=== PATIENT | female | born 1960 | race Caucasian/White ===

== ENCOUNTER 2018-05-17 04:50 | Inpatient (IN) | payer OTHER ==
[2018-05-17] MEDS ORDERED: TRANEXAMIC ACID 1,000 MG in NS 100 ML IV ONE (06:00)
[2018-05-17] MEDS ORDERED: LIDOCAINE 1% 2 ML INJ ONE (06:05)
[2018-05-17] MEDS ORDERED: ACETAMINOPHEN 500 MG TAB PO ONE (06:06)
[2018-05-17] MEDS ORDERED: morphINE PF 0.2 MG in SYRINGE INTRATHECAL 1 SYR IT ONE (06:06)
[2018-05-17] MEDS ORDERED: LR 1,000 ML IV ONE (06:06)
[2018-05-17] MEDS ORDERED: fentaNYL 50 MCG in SYRINGE INTRATHECAL 1 SYR IT ONE (06:06)
[2018-05-17] MEDS ORDERED: GABAPENTIN 300 MG CAP PO ONE (06:06)
[2018-05-17] MEDS ORDERED: LIDOCAINE 1% 2 ML INJ ID PRN (06:06)
[2018-05-17] MEDS ORDERED: ceFAZolin 2 GM/DEXTROSE 100 ML IV ONE (06:06)
[2018-05-17] MEDS ORDERED: BUPIVACAINE 0.25% 10 ML SDV ONE (06:33)
[2018-05-17] MEDS ORDERED: BUPIVACAINE/EPI 0.25% 30 ML SDV ONE (06:33)
[2018-05-17] MEDS ORDERED: CHLORHEXIDINE GLUC HIBICLENS 118 ML BTL TP ONE (06:34)
[2018-05-17] MEDS ORDERED: BACITRACIN 50,000 UNITS/10 ML SYR IRR ONE (06:34)
[2018-05-17] MEDS ORDERED: THROMBIN (BOVINE) 20,000 UNIT VIAL TP ONE (06:34)
[2018-05-17] MEDS ORDERED: CITRATE DEXTROSE SOLN 500 ML BAG ONE (06:34)
[2018-05-17] MEDS ORDERED: MIDAZOLAM 2 MG/2 ML VIAL IVP ONE (06:50)
--- NOTE | 2018-05-17 06:52 | PDANEPAE ---
ANE History of Present Illness TLIF ANE Past Medical History - Cardiovascular History Hx Hypertension: No Hx Arrhythmias: No Hx Chest Pain: No Hx Coronary Artery / Peripheral Vascular Disease: No Hx CHF / Valvular Disease: No Hx Palpitations: Yes Cardiovascular History Comment: RELATED TO ANXIETY - Pulmonary History Hx COPD: No Hx Asthma/Reactive Airway Disease: No Hx Recent Upper Respiratory Infection: No Hx Oxygen in Use at Home: No Hx Sleep Apnea: No Sleep Apnea Screening Result - Last Documented: Negative - Neurologic History Hx Cerebrovascular Accident: No Hx Seizures: No Hx Dementia: No - Endocrine History Hx Diabetes: No Hypothyroid: No Hyperthyroid: No Obesity: no Endocrine History Comment: HYPOTHYROID - Renal History Hx Renal Disorders: No Renal History Comment: REMOTE UTI - Liver History Hx Hepatic Disorders: No - Neurological & Psychiatric Hx Hx Neurological and Psychiatric Disorders: Yes Neurological / Psychiatric History Comment: DEPRESSION/ANXIETY - Cancer History Hx Cancer: No - Congenital Disorder History Hx Congenital Disorders: No - GI History GERD: no Hx Gastrointestinal Disorders: No - Other Health History Other Health History: LT LEG/FOOT NT. SCOLIOSIS. DDD - Chronic Pain History Chronic Pain: Yes (DOWN LT LEG AND LOWER BACK) - Surgical History Prior Surgeries: LAMINECTOMIES X 2 LAST 2014. DIONICIO BUNIONECTOMY. HYSTERECTOMY. RT CALF MUSCLE FOR FLEXIBILITY. RT 2ND TOE SHORTENED. REMVL NIELSON NEUROMA RT FOOT ANE Review of Systems Review of systems is: negative Review of Systems: - Exercise capacity METS (RN): 4 METS ANE Patient History - Allergies Allergies/Adverse Reactions: Sulfa (Sulfonamide Antibiotics) Allergy (Verified 05/14/18 14:49) Hives - Home Medications Home medications: home medication list seen and reviewed Home Medications: Cholecalciferol Vit D3 [Vitamin D3 (*)] 1,000 units PO DAILY 05/11/18 [Last Taken 05/10/18] Cyanocobalamin [Vitamin B12 (*)] 1,000 mcg PO DAILY 05/11/18 [Last Taken ] Escitalopram Oxalate [Lexapro] 30 mg PO DAILY 05/11/18 [Last Taken 05/17/18] Herbals/Supplements -Info Only 1 ea PO DAILY 05/11/18 [Last Taken Unknown] Hydrocodone/APAP 5/325 [[employer] 5/325 (*)] 1 tab PO DAILY 05/11/18 [Last Taken 02/23] Ibuprofen [Motrin (*)] 400 - 800 mg PO DAILY PRN 05/11/18 [Last Taken 05/07/18] Levothyroxine [Synthroid 50 mcg (*)] 50 mcg PO DAILY06 05/11/18 [Last Taken 03/25] Liothyronine Sodium [Cytomel 5 mcg (*)] 5 mcg PO DAILY 05/11/18 [Last Taken 03/25] Multivitamins [Multivitamin (*)] 1 each PO DAILY 05/11/18 [Last Taken 05/10/18] Propranolol HCl [Inderal 10mg (*)] 10 mg PO DAILY 05/11/18 [Last Taken 05/16/18] buPROPion XL [Wellbutrin Xl] 150 mg PO DAILY 05/11/18 [Last Taken 05/17/18] Estradiol ONCE 05/14/18 [Last Taken 05/16/18] - NPO status NPO Since - Liquids (Date): 05/16/18 NPO Since - Liquids (Time): 18:30 NPO Since - Solids (Date): 05/16/18 NPO Since - Solids (Time): 18:30 - Anes Hx Anes Hx: no prior problems - Smoking Hx Smoking Status: Former smoker ANE Labs/Vital Signs - Vital Signs Blood Pressure: 100/59 Heart Rate: 61 Respiratory Rate: 18 O2 Sat (%): 96 Height: 165.1 cm Weight: 68.039 kg ANE Physical Exam - Airway Neck exam: FROM Mallampati Score: Class 2 Mouth exam: normal dental/mouth exam - Pulmonary Pulmonary: no respiratory distress - Cardiovascular Cardiovascular: regular rate and rhythym - ASA Status ASA Status: II ANE Anesthesia Plan Anesthesia Plan: general endotracheal anesthesia
[2018-05-17 06:55] LABS: PLATELET COUNT 271 10^3/uL (150-400)
[2018-05-17] MEDS ORDERED: fentaNYL 100 MCG/2 ML INJ ONE ×2 (06:56→13:01)
[2018-05-17] MEDS ORDERED: REMIFENTANIL HCL 1 MG VIAL ONE ×2 (06:56→09:40)
--- NOTE | 2018-05-17 06:56 | PDHPUP ---
History & Physical Update H&P update statement: This history and physical update is based on an assessment of the patient which was completed after admission or registration (within 24 hours), but prior to the surgery/procedure. H&P update: H&P reviewed & patient examined, no change in patient's condition since H&P completed
[2018-05-17] MEDS ORDERED: PROPOFOL/EMULSION 500 MG/50 ML BOTTLE IV ONE ×2 (06:57→09:41)
[2018-05-17] MEDS ORDERED: DEXAMETHASONE 4 MG/ML VIAL ONE (07:10)
[2018-05-17] MEDS ORDERED: ONDANSETRON 4 MG/2 ML VIAL ONE (07:10)
[2018-05-17] MEDS ORDERED: ROCURONIUM 50 MG/5 ML VIAL ONE (07:10)
[2018-05-17] MEDS ORDERED: LIDOCAINE 2% 100 MG/5 ML SYR ONE (07:10)
[2018-05-17] MEDS ORDERED: ePHEDrine SULFATE 25 MG/5 ML SYR ONE ×2 (07:36→09:39)
[2018-05-17] MEDS ORDERED: HYDROmorphONE/DILAUDID 2 MG/ML INJ ONE ×2 (10:27→13:01)
[2018-05-17] MEDS ORDERED: ceFAZolin 1 GM VIAL ONE ×2 (10:55→10:56)
[2018-05-17] MEDS ORDERED: THROMBIN (BOVINE) 5,000 UNIT VIAL TP ONE (11:05)
[2018-05-17] MEDS ORDERED: ALBUTEROL 3 ML DEYVIAL IH PRN (11:15)
[2018-05-17] MEDS ORDERED: HYDROmorphONE/DILAUDID 2 MG/ML INJ IVP PRN (11:15)
[2018-05-17] MEDS ORDERED: oxyCODONE IR 5 MG TAB PO PRN (11:15)
[2018-05-17] MEDS ORDERED: NALOXONE HCL 0.4 MG/ML INJ IVP PRN ×2 (11:15→12:44)
[2018-05-17] MEDS ORDERED: DIAZEPAM 5 MG/ML 1 ML SYR IVP PRN (11:15)
[2018-05-17] MEDS ORDERED: METOCLOPRAMIDE 10 MG/2 ML VIAL IVP PRN (11:15)
[2018-05-17] MEDS ORDERED: LR 500 ML IV PRN (11:15)
[2018-05-17] MEDS ORDERED: ONDANSETRON 4 MG/2 ML VIAL IVP PRN (11:15)
[2018-05-17] MEDS ORDERED: ACETAMINOPHEN 500 MG TAB PO PRN (11:15)
[2018-05-17] MEDS ORDERED: fentaNYL 100 MCG/2 ML INJ IVP PRN (11:15)
[2018-05-17] MEDS ORDERED: HYDROCODONE/APAP 5/325 TAB PO PRN (11:15)
[2018-05-17] MEDS ORDERED: PROMETHAZINE HCL 25 MG/ML INJ IVP PRN (11:15)
[2018-05-17] MEDS ORDERED: PHENYLEPHRINE HCL 100 MCG/ML SYR IVP PRN (11:15)
--- NOTE | 2018-05-17 11:30 | POSTANESTH ---
Post Anesthetic Evaluation Cardiovascular Status: Normal, Stable Respiratory Status: Normal, Stable Level of Consciousness/Mental Status: Can Participate in Eval, Alert and Oriented Pain Control: Adequate, Prn Tx Ordered Nausea/Vomiting Control: Adequate, Prn Tx Ordered Complications Possibly Related to Anesthesia: None Noted
[2018-05-17] MEDS ORDERED: ONDANSETRON DISINTEGRATING 4 MG TAB PO PRN (12:44)
[2018-05-17] MEDS ORDERED: morphINE PCA 30 MG/30 ML PCA IV PRN (12:44)
[2018-05-17] MEDS ORDERED: MAGNESIUM HYDROXIDE 30 ML UDCUP PO PRN (12:44)
[2018-05-17] MEDS ORDERED: BISACODYL 10 MG SUPP PR PRN (12:44)
[2018-05-17] MEDS ORDERED: diphenhydrAMINE 25 MG CAP PO PRN (12:44)
[2018-05-17] MEDS ORDERED: LACTULOSE 20 GM/30 ML UDCUP PO PRN (12:44)
[2018-05-17] MEDS ORDERED: NS 1,000 ML IV SCH (12:45)
--- NOTE | 2018-05-17 12:50 | SOAPPROG ---
SOAP Progress Note Assessment/Plan: Assessment: 57 yo F sp L2-5 TLIF Plan: stable to 3N LSO brace when out of bed please call with neuro changes 05/17/18 12:49 Subjective: + back pain, no leg pain. Objective: Vital Signs Temp Pulse Resp BP Pulse Ox 36.6 C 61 18 100/59 L 96 05/17/18 07:07 05/17/18 07:07 05/17/18 07:07 05/17/18 07:07 05/17/18 07:07 Laboratory Results 05/17/18 06:40 somnolent PERRL, EOMI 5/5 + light touch ICD10 Worksheet Patient Problems: Problems Problem Status Onset Fusion of spine of lumbar region Acute - ICD10 Problem Qualifiers (1) Fusion of spine of lumbar region
[2018-05-17] MEDS: ceFAZolin 2 GM/DEXTROSE 100 ML IV SCH ×2 (16:38→23:58)
[2018-05-17] MEDS: POLYETHYLENE GLYCOL 3350 17 GM PKT PO SCH ×2 (16:39→21:57)
--- NOTE | 2018-05-17 17:28 | GOP ---
DATE OF OPERATION: 05/17/2018 SURGEON: Akil Lacey MD NEUROSURGEON: Akil Lacey MD SLOT FLOOR PERSON: AN Kunz ANESTHESIA: General endotracheal. PREOPERATIVE DIAGNOSIS: Severe multilevel lumbar degenerative joint disease and spinal stenosis with scoliosis. Severe lateral recess impingement on the left greater than right. Failed conservative care. Intractable low back pain and left lower extremity radiculopathy. Failed conservative care. POSTOPERATIVE DIAGNOSIS: Severe multilevel lumbar degenerative joint disease and spinal stenosis with scoliosis. Severe lateral recess impingement on the left greater than right. Failed conservative care. Intractable low back pain and left lower extremity radiculopathy. Failed conservative care. PROCEDURE PERFORMED: Left-sided L2-3 L3-4 L4-5 far lateral transpedicular decompression with L2 through 5 posterior segmental (pedicle screw and axle device) fixation and posterolateral fusion with local autograft, bone morphogenic protein, and morselized allograft. L2-3 L3-4, and L4-5 posterior/ transforaminal lumbar interbody fusion with 2 structural PEEK interbody spacers , local autograft, bone morphogenic protein, and morselized allograft at each level. Use of intraoperative microscopy fluoroscopy and computer volumetric stereotactic navigation with intraoperative neurophysiologic testing. Injection of injection of intrathecal narcotic analgesics in subcutaneous and intramuscular local anesthesia for postoperative pain control. FINDINGS: ESTIMATED BLOOD LOSS: 300 cc. INDICATIONS: The patient is a 57-year-old woman with intractable low back pain and left lower extremity radicular symptoms secondary to severe multilevel lumbar degenerative joint disease and severe spinal stenosis with lateral recess impingement. The patient has failed extensive conservative care and presents now for surgical decompression and stabilization. DESCRIPTION OF PROCEDURE: After informed consent was obtained, the patient was taken to the operating room and placed in the prone position on the Thomas table. The thoracolumbosacral areas were prepped and draped in a sterile fashion. After fluoroscopic localization of the correct level, the subcutaneous and intramuscular tissues were infiltrated with local anesthesia. A midline linear incision was then created from approximately L2 to L5. This was carried down to the fascial layer, which was then incised using monopolar electrocautery and carried in the subperiosteal plane along the spinous processes and lamina bilaterally. Intraoperative fluoroscopy was again utilized to verify the correct levels. Note that the exposure was very difficult due to the anatomy and increased blood loss which was more than normal. This led to the exposure taking twice as long as normal. Following this, the dissection was carried out over the facet joints. Left- sided far lateral transpedicular decompressions were then performed at the L2-3 , L3-4, and L4-5 levels with a redo posterior hemilaminectomy and decompression being performed at the L4-5 level where there was a prior hemilaminectomy defect and extensive scar tissue. This required meticulous dissection under high -power microscopy, and after thoroughly decompressing each level on the left, as well as right side by angling the microscope and instruments across the midline, the wound was copiously irrigated with antibiotic irrigation and meticulous hemostasis was achieved. Again, this part of the procedure was much more difficult and time-consuming than normal due to the scar tissue and distorted anatomy and took more than twice as long as normal. Following this, short rods were placed across the interspaces, which were placed under distraction, during which time complete diskectomies were performed at the L2-3, L3-4, and L4-5 levels for placement of 2 structural PEEK interbody spacers, local autograft, bone morphogenic protein, and morselized allograft for L2-3, L3-4, and L4-5 posterior/transforaminal lumbar interbody fusions. The shorter rods were then removed and longer maximally lordotically curved rods were then placed and secured from L2 to L5 under fluoroscopic image guidance. A slight amount of compression was created across each interspace in order to facilitate bony union and to minimize the potential for posterior graft migration. The remaining lamina and facet joints were then extensively decorticated and the residual local autograft, along with bone morphogenic protein and morselized allograft was placed out laterally for posterolateral fusion from L2-L5. 200 mcg of Duramorph along with 50 mcg of fentanyl were injected intrathecally. The subcutaneous and intramuscular tissues were re-infiltrated with local anesthesia, and after re-verification of good position of the screws, rods, and interbody spacers using biplanar fluoroscopy, a drain was placed and the wound was closed in a layered fashion using interrupted Vicryl sutures, followed by Steri-Strips on the skin. COMPLICATIONS: None. DISPOSITION: The patient was extubated and transferred to the recovery room in stable condition. /[id number]/MODL MTDD
[2018-05-17] MEDS: ONDANSETRON 4 MG/2 ML VIAL IVP PRN (17:32)
--- NOTE | 2018-05-17 19:20 | PDMN ---
Medical Necessity Medical necessity: [facility] [place] S820 lumbar fusion OP: L2-5 TLIF... AUTH# [id number] APPROVED FOR CPT 65452, 24601, 38199, 17889, 29212, 14950, 40496, 23222 DONE INPNT LOS 3 DAYS
[2018-05-17] MEDS: FAMOTIDINE 20 MG TAB PO SCH (21:57)
[2018-05-17] MEDS: SENNOSIDES/DOCUSATE SODIUM TAB PO SCH (21:57)
[2018-05-18] MEDS: HYDROCODONE/APAP 5/325 TAB PO PRN ×2 (01:08→13:05)
[2018-05-18 05:22] LABS: PLATELET COUNT 224 10^3/uL (150-400)
[2018-05-18] MEDS: oxyCODONE IR 5 MG TAB PO PRN ×2 (06:15→08:23)
[2018-05-18] MEDS: LEVOTHYROXINE 50 MCG TAB PO SCH (06:15)
[2018-05-18] MEDS: METHOCARBAMOL 750 MG TAB PO PRN ×2 (06:15→12:58)
--- NOTE | 2018-05-18 07:24 | SOAPPROG ---
SOAP Progress Note Assessment/Plan: Assessment: POD #1 sp L2-5 TLIF. Doing well, pain controlled no new issues Plan: Continue HUMBERTO drain OOB in LSO with PT/OT Lumbar Xrays today to evaluate hardware Lovenox starts today 05/18/18 07:22 05/18/18 07:24 Subjective: lying in bed, comfortable. Denies numbness tingling or weakness Objective: Vital Signs Temp Pulse Resp BP Pulse Ox 36.9 C 73 16 92/57 L 99 05/18/18 04:00 05/18/18 04:00 05/18/18 04:00 05/18/18 04:00 05/18/18 04:00 Laboratory Results 05/18/18 04:21 05/18/18 04:21 05/17/18 05/18/18 05/19/18 05:59 05:59 05:59 Intake Total 5400 Output Total 2780 Balance 2620 Neuro: VARGAS, sens +Lt Dressing: Dry HUMBERTO: 280 ml since surgery ICD10 Worksheet Patient Problems: Problems Problem Status Onset Fusion of spine of lumbar region Acute
[2018-05-18] MEDS: ESCITALOPRAM OXALATE 10 MG TAB PO SCH (08:24)
[2018-05-18] MEDS: ENOXAPARIN 40 MG/0.4 ML SYR SC SCH (08:25)
[2018-05-18] MEDS: POLYETHYLENE GLYCOL 3350 17 GM PKT PO SCH ×3 (08:25→22:41)
[2018-05-18] MEDS: SENNOSIDES/DOCUSATE SODIUM TAB PO SCH ×2 (08:25→20:00)
[2018-05-18] MEDS: buPROPion XL 150 MG TAB PO SCH (08:25)
[2018-05-18] MEDS: FAMOTIDINE 20 MG TAB PO SCH ×2 (08:25→20:00)
[2018-05-18] MEDS: ONDANSETRON 4 MG/2 ML VIAL IVP PRN ×2 (10:08→14:17)
[2018-05-18] MEDS: LIOTHYRONINE SODIUM 5 MCG TAB PO SCH (10:21)
[2018-05-18] MEDS: PROPRANOLOL HCL 20 MG TAB PO SCH (10:22)
[2018-05-18] MEDS ORDERED: PROMETHAZINE HCL 25 MG/ML INJ IVP PRN (14:34)
[2018-05-18] MEDS: HYDROCODONE/APAP 10/325 TAB PO PRN ×2 (19:56→22:41)
--- NOTE | 2018-05-18 21:36 | ASMTCMCOM ---
CM Note CM Note Notes: Pt had planned surgery, resides with spouse. OT rec home, PT eval pending as pt limited by pain/nausea. CM to follow. Date Signed: 05/18/2018 03:45 PM Electronically Signed By:MENDOZA Noble
[2018-05-19] MEDS: LEVOTHYROXINE 50 MCG TAB PO SCH (05:23)
[2018-05-19] MEDS: HYDROCODONE/APAP 10/325 TAB PO PRN ×4 (05:23→19:15)
--- NOTE | 2018-05-19 07:48 | SOAPPROG ---
SOAP Progress Note Assessment/Plan: Assessment: 57 yo F POD #2 L2-5 TLIF Plan: stable and doing well overall post op x-rays look great scd/meghana/lovenox for dvt prophylaxis nausea improved, continue with PO meds LSO brace when out of bed please call with neuro changes likely dc home tomorrow discussed with Dr Stoddard 05/17/18 12:49 05/19/18 07:47 Subjective: continued back pain, no leg pain, no weakness. Objective: Vital Signs Temp Pulse Resp BP Pulse Ox 36.7 C 66 16 104/65 91 L 05/19/18 07:12 05/19/18 07:12 05/19/18 07:12 05/19/18 07:12 05/19/18 07:12 Laboratory Results 05/18/18 04:21 05/18/18 04:21 05/18/18 05/19/18 05/20/18 05:59 05:59 05:59 Intake Total 5400 1700 Output Total 2780 921 Balance 2620 779 AAOX4, +FC PERRL, EOMI, no facial droop 5/5 + light touch C/D/I ICD10 Worksheet Patient Problems: Problems Problem Status Onset Fusion of spine of lumbar region Acute - ICD10 Problem Qualifiers (1) Fusion of spine of lumbar region
[2018-05-19] MEDS: ENOXAPARIN 40 MG/0.4 ML SYR SC SCH (08:57)
[2018-05-19] MEDS: PROPRANOLOL HCL 20 MG TAB PO SCH (08:57)
[2018-05-19] MEDS: buPROPion XL 150 MG TAB PO SCH (08:57)
[2018-05-19] MEDS: ESCITALOPRAM OXALATE 10 MG TAB PO SCH (08:59)
[2018-05-19] MEDS: LIOTHYRONINE SODIUM 5 MCG TAB PO SCH (08:59)
[2018-05-19] MEDS: METHOCARBAMOL 750 MG TAB PO PRN ×3 (09:01→19:15)
[2018-05-19] MEDS: FAMOTIDINE 20 MG TAB PO SCH ×2 (09:01→21:23)
[2018-05-19] MEDS: POLYETHYLENE GLYCOL 3350 17 GM PKT PO SCH ×3 (09:01→21:22)
[2018-05-19] MEDS: SENNOSIDES/DOCUSATE SODIUM TAB PO SCH ×2 (09:01→21:22)
[2018-05-20] MEDS: HYDROCODONE/APAP 10/325 TAB PO PRN ×2 (04:24→09:00)
[2018-05-20] MEDS: METHOCARBAMOL 750 MG TAB PO PRN (04:24)
[2018-05-20] MEDS: LEVOTHYROXINE 50 MCG TAB PO SCH (05:23)
--- NOTE | 2018-05-20 07:24 | SOAPPROG ---
SOAP Progress Note Assessment/Plan: Assessment: 57 yo F POD #3 L2-5 TLIF Plan: stable and doing well overall post op x-rays look great scd/meghana/lovenox for dvt prophylaxis nausea improved, continue with PO meds LSO brace when out of bed please call with neuro changes likely dc home today discussed with Dr Stoddard 05/17/18 12:49 05/19/18 07:47 05/20/18 07:23 Subjective: back pain improving, no leg pain, no weakness. Objective: Vital Signs Temp Pulse Resp BP Pulse Ox 36.6 C 77 16 104/68 98 05/19/18 23:21 05/19/18 23:21 05/19/18 23:21 05/19/18 23:21 05/19/18 23:21 Laboratory Results 05/18/18 04:21 05/18/18 04:21 05/19/18 05/20/18 05/21/18 05:59 05:59 05:59 Intake Total 1700 900 Output Total 921 190 Balance 779 710 AAOX4, +FC PERRL, EOMI, no facial droop 5/5 + light touch C/D/I ICD10 Worksheet Patient Problems: Problems Problem Status Onset Fusion of spine of lumbar region Acute - ICD10 Problem Qualifiers (1) Fusion of spine of lumbar region
[2018-05-20 07:38] VITALS: BP 108/69
[2018-05-20] MEDS ORDERED: ESTRADIOL VIVELLE 0.05 MG PATCH TD SCH (08:00)
[2018-05-20] MEDS: LIOTHYRONINE SODIUM 5 MCG TAB PO SCH (08:59)
[2018-05-20] MEDS: ESCITALOPRAM OXALATE 10 MG TAB PO SCH (08:59)
[2018-05-20] MEDS: POLYETHYLENE GLYCOL 3350 17 GM PKT PO SCH (08:59)
[2018-05-20] MEDS: buPROPion XL 150 MG TAB PO SCH (08:59)
[2018-05-20] MEDS: FAMOTIDINE 20 MG TAB PO SCH (08:59)
[2018-05-20] MEDS: SENNOSIDES/DOCUSATE SODIUM TAB PO SCH (09:00)
[2018-05-20] MEDS: PROPRANOLOL HCL 20 MG TAB PO SCH (09:00)
[2018-05-20] MEDS: ENOXAPARIN 40 MG/0.4 ML SYR SC SCH (09:07)
--- NOTE | 2018-05-20 10:38 | ASMTLACE ---
LIZET Length of stay for Answers: 3 days current admission Acuity / Level of Answers: Yes Care: Did the patient have an inpatient admission? Comorbidities - select Answers: Opioid dependence all that apply / Chronic pain Other Notes: Hypothyroid # of Emergency department Answers: 0 visits in the last 6 months Social determinants Answers: Mental health diagnosis (anxiety, depression, pers onality disorders, etc.) Score: 14 Date Signed: 05/20/2018 10:37 AM Electronically Signed By:Annia Rowe RN
--- NOTE | 2018-05-20 10:39 | ASMTDCNOTE ---
Case Management Discharge Discharge Order Complete? Answers: Yes Patient to Obtain Answers: Independently Medications Transportation Arranged Answers: Family/Friends Family Notified Answers: Yes Discharge Comments Notes: Patient cleared to d/c home by PT/OT. She will d/c w her Lee. No CM needs identified. Date Signed: 05/20/2018 10:38 AM Electronically Signed By:Annia Rowe RN
--- NOTE | 2018-05-26 09:58 | GDS ---
ADMISSION DIAGNOSIS: Lumbar degenerative joint disease and stenosis. DISCHARGE DIAGNOSIS: Status post L2-3, L3-4, L4-5 transforaminal lumbar interbody fusion. HISTORY AND PHYSICAL: Please see admission history and physical. COURSE: Patient is a 57-year-old female who presented with severe multilevel lumbar degenerative pedro nt disease and stenosis. She was taken to the operating room on 05/17/2018, where she underwent an L 2-3, L3-4, and L4-5 transforaminal lumbar interbody fusion. There were no intraoperative complicatio ns, and she was admitted to the floor for observation. On the floor, she was tolerating a regular di et, and her pain was controlled with p.o. pain medications. She was discharged home in stable condit ion on 05/20/2018. Patient was discharged with lumbar fusion instructions and recommended she return for a neurosurgical followup appointment in 10-14 days. /[id number]/MODL
== END 2018-05-20 11:29 | disposition home or self-care (01) | DRG 455 ==
LOC: F3E 04:50 → F3N 13:51
PROVIDERS: ADMIT Neurological Surgery; ATTEND Neurological Surgery
DX: M51.36 Other intervertebral disc degeneration, lumbar region (principal); M41.86 Other forms of scoliosis, lumbar region; M51.16 Intervertebral disc disorders with radiculopathy, lumbar region; E03.9 Hypothyroidism, unspecified; F41.8 Other specified anxiety disorders
CPT/HCPCS: 97161-GP; 97165-GO; 97535-GO; C1713; C1762; J0690; J1100; J1170; J1650; J2001; J2250; J2270; J2274; J2405; J2550; J2704; J3010